=== PATIENT | female | born 1980 | race Caucasian/White ===

== ENCOUNTER → 2022-03-15 | Outpatient (CLI) | payer OTHER ==
[2022-03-15 16:02] LABS: Estradiol 44.8 pg/mL; Luteinizing Hormone 3.2 mIU/mL
[2022-03-15 16:04] LABS: Basophils # (A) 0.04 X 10*3/uL (0.00-0.10); Basophils % (A) 0.6 %; Eosinophils # (A) 0.12 X 10*3/uL (0.04-0.35); Eosinophils % (A) 1.8 %; HCT 38.2 % (37.2-46.3); HGB 12.8 g/dL (12.0-15.0); Immature Grans, Automated 0.1 %; Lymphocytes # (A) 2.43 X 10*3/uL (0.90-5.00); Lymphocytes % (A) 35.5 %; MCH 27.7 pg (27.0-32.0); MCHC 33.5 g/dL (32.0-37.0); MCV 82.7 fL (80.0-97.0); Mean Platelet Volume 10.9 fL (9.5-12.2); Monocytes # (A) 0.34 X 10*3/uL (0.20-1.00); NRBC Per 100 WBC 0 /100 WBCS (0.0-0.0); Platelet Count 275 X 10*3/uL (140-440); RBC 4.62 X 10*6/uL (4.10-5.20); RDW 14.2 % (11.5-14.5); WBC 6.84 X 10*3/uL (4.50-10.00)
[2022-03-15 16:21] LABS: ALT 17 U/L (8-44); AST 23 U/L (13-35); Albumin 4.5 g/dL (3.8-4.9); Albumin/Globulin Ratio 1.73 (1.60-3.17); Alkaline Phosphatase 70 U/L (41-126); BUN/Creat Ratio 12.22 Ratio (12.00-20.00); Calcium 9.5 mg/dL (8.7-10.3); Carbon Dioxide 24.5 mmol/L (20.0-27.5); Chloride 103 mmol/L (96-109); Chol/HDL Ratio 4.21 Ratio; Globulin 2.6 g/dL (1.6-3.3); Glucose 78 mg/dL (70-110); LDL Cholesterol,Calculated 174.9 mg/dL (0.0-131.0); Non-African American GFR(CKD) 79.4 (60.0-200.0); Potassium 4.6 mmol/L (3.5-5.5); Sodium 139 mmol/L (135-145); Total Protein 7.1 g/dL (6.2-8.2); VLDL Calculation 15.74 mg/dL (5.00-40.00)
== END | disposition home or self-care (01) ==
LOC: LABWHC1 09:25
PROVIDERS: ATTEND Family Medicine
DX: E78.5 Hyperlipidemia, unspecified (principal); N64.3 Galactorrhea not associated with childbirth
CPT/HCPCS: 36415; 80053; 80061; 82670; 83001; 83002; 84146; 84439; 84443; 85025

== ENCOUNTER → 2022-03-29 | Outpatient (CLI) | payer OTHER ==
--- NOTE | 2022-03-29 10:10 | MM ---
Reason for Exam: Clinical finding. Last mammogram was performed 6 year(s) and 0 month(s) ago. Indicated Problems: Bloody discharge of the right side for 3 Month(s). Patient History: Menarche at age 14. First Full-Term at age 23. Patient has history of breast feeding. Last menstrual period: 03/14/2022 Risk Values: Sully 5 year model risk: 0.5%. NCI Lifetime model risk: 9.0%. Prior Study Comparison: 04/17/2016 Bilateral Diagnostic Mammogram, [facility]. 04/17/2016 Right Diagnostic Ultrasound, [facility]. Tissue Density: The breast tissue is heterogeneously dense. This may lower the sensitivity of mammography. Findings: Analyzed By CAD. No suspicious new mass or distortion in the either breast. Overall Assessment: Incomplete: need additional imaging evaluation, BI-RAD 0 Management: Diagnostic Breast Ultrasound of the right breast. Targeted right breast ultrasound retroareolar region due to symptoms of nipple discharge. Results were given to the patient verbally at the time of exam. Electronically signed and approved by: Stefano Lara M.D.
--- NOTE | 2022-03-29 11:01 | USB ---
Patient History: Menarche at age 14. First Full-Term at age 23. Patient has history of breast feeding. Risk Values: Sully 5 year model risk: 0.5%. NCI Lifetime model risk: 9.0%. Technique: Method: Targeted. Prior Study Comparison: 04/17/2016 Bilateral Diagnostic Mammogram, [facility]. Findings: The axilla of the right breast and the retroareolar of the right breast were scanned. Targeted ultrasound shows some prominent ducts in the and retroareolar region without concerning solid or cystic mass or fluid collection. Overall Assessment: Negative, BI-RAD 1 Management: Screening Mammogram of both breasts in 1 year. If nipple discharge becomes spontaneous than breast surgical referral would be advised. Results were given to the patient verbally at the time of exam. Electronically signed and approved by: Stefano Lara M.D.
== END | disposition home or self-care (01) ==
LOC: RADMAMWWP 09:35
PROVIDERS: ATTEND Family Medicine
DX: N64.3 Galactorrhea not associated with childbirth (principal)
CPT/HCPCS: 77066

== ENCOUNTER → 2022-11-10 | Outpatient (CLI) | payer OTHER ==
[2022-11-10 15:49] LABS: Basophils # (A) 0.03 X 10*3/uL (0.00-0.10); Basophils % (A) 0.5 %; Eosinophils # (A) 0.12 X 10*3/uL (0.04-0.35); Eosinophils % (A) 1.9 %; HGB 14.1 d/dL (12.0-15.0); Lymphocytes # (A) 2.18 X 10*3/uL (0.90-5.00); Lymphocytes % (A) 34.8 %; MCH 27.2 pg (27.0-32.0); MCV 84.8 FL (80.0-97.0); Mean Platelet Volume 10.9 FL (9.5-12.2); Monocytes # (A) 0.26 X 10*3/uL (0.20-1.00); Monocytes % (A) 4.1 %; NRBC Per 100 WBC 0 X 10*3/uL (0.00-0.01); Neutrophils # (A) 3.67 X 10*3/uL (1.80-7.70); Neutrophils % (A) 58.5 %; Platelet Count 304 X 10*3/uL (140-440); RBC 5.19 X 10*6/uL (4.10-5.20); RDW 13.3 % (11.5-14.5); WBC 6.27 X 10*3/uL (4.50-10.00)
[2022-11-10 21:28] LABS: ALT 25 U/L (8-44); AST 26 U/L (13-35); Albumin 4.8 d/dL (3.8-4.9); Albumin/Globulin Ratio 1.78 Ratio (1.60-3.17); Alkaline Phosphatase 68 U/L (41-126); BUN/Creat Ratio 12.11 Ratio (12.00-20.00); Blood Urea Nitrogen 10.9 mg/dL (9.0-27.0); Calcium 10.2 mg/dL (8.7-10.3); Carbon Dioxide 24.6 mmol/L (21.6-31.8); Chloride 104 mmol/L (96-109); Chol/HDL Ratio 4.47 Ratio; Globulin 2.7 d/dL (1.6-3.3); Glucose 74 mg/dL (70-110); LDL Cholesterol,Calculated 161.7 mg/dL (0.0-131.0); Potassium 4.7 mmol/L (3.5-5.5); Sodium 141 mmol/L (135-145); Total Bilirubin 0.3 mg/dL (0.3-1.2); Total Protein 7.5 d/dL (6.2-8.2); VLDL Calculation 16.08 mg/dL (5.00-40.00)
[2022-11-11 00:46] LABS: HIV 2 AB Non-Reactive (Non-Reactive); HIV AB P24 Non-Reactive (Non-Reactive); HIV P24 AG Non-Reactive (Non-Reactive)
== END | disposition home or self-care (01) ==
LOC: LABWHC1 10:52
PROVIDERS: ATTEND Family Medicine
DX: Z11.4 Encounter for screening for human immunodeficiency virus [HIV] (principal); Z11.59 Encounter for screening for other viral diseases; E78.5 Hyperlipidemia, unspecified
CPT/HCPCS: 36415; 80053; 80061; 84443; 85025; 86803; 87390